=== PATIENT | female | born 1995 | race Caucasian/White ===

== ENCOUNTER 2019-01-04 19:50 | Emergency (ER) | payer BC ==
[2019-01-04 20:58] LABS: Appearance,Urine Clear (Clear); Bilirubin,Urine Negative (Negative); Blood,Urine Negative (Negative); Color,Urine Yellow; Glucose,Urine (UA) Negative (Negative); Ketones,Urine Negative (Negative); Leukocyte Esterase,Urine Negative (Negative); Nitrite,Urine Negative (Negative); PH, Urine 6.5 (5.0-8.0); Protein,Urine Negative (Negative); Specific Gravity,Urine 1.013 (1.001-1.035); Urobilinogen,Urine <2.0 mg/dL (<2.0)
[2019-01-04] MEDS ORDERED: SODIUM CHLORIDE 0.9% 1,000 ML IV STA (21:39)
[2019-01-04] MEDS ORDERED: KETOROLAC 30 MG/ML 1 ML VIAL IVP STA (21:39)
[2019-01-04] MEDS ORDERED: FAMOTIDINE 20 MG/2 ML VIAL IV STA (21:40)
[2019-01-04 22:00] LABS: Basophils # (A) 0.1 k/uL (0-0.2); Basophils % (A) 1 %; Eosinophils # (A) 0.1 k/uL (0-0.7); Eosinophils % (A) 2 %; HCT 42.4 % (34.0-46.0); Lymphocytes # (A) 1.6 k/uL (1.0-4.8); Lymphocytes % (A) 26 %; MCH 28.1 pg (25.0-35.0); MCHC 33.1 g/dL (31.0-37.0); MCV 84.8 fL (80.0-100.0); Mean Platelet Volume 6.8; Monocytes # (A) 0.4 k/uL (0-1.0); Monocytes % (A) 7 %; Neutrophils # (A) 3.8 k/uL (1.3-7.7); Neutrophils % (A) 62 %; Platelet Count 292 k/uL (150-450); RDW 13.1 % (11.5-15.5); WBC 6.1 k/uL (3.8-10.6)
[2019-01-04 22:02] VITALS: BP 119/80; RESP 18
[2019-01-04 22:11] LABS: ALT 22 U/L (9-52); AST 17 U/L (14-36); African American GFR (CKD) >90 (>60 ml/min/1.73 sqM); Albumin 4.6 g/dL (3.5-5.0); Alkaline Phosphatase 76 U/L (38-126); Amylase 56 U/L (30-110); Anion Gap 12 mmol/L; Blood Urea Nitrogen 9 mg/dL (7-17); Carbon Dioxide 23 mmol/L (22-30); Chloride 105 mmol/L (98-107); Glucose 104 mg/dL (74-99); Sodium 140 mmol/L (137-145); Total Bilirubin 0.3 mg/dL (0.2-1.3); Total Protein 7.7 g/dL (6.3-8.2)
--- NOTE | 2019-01-04 22:14 | XR ---
EXAM: XR Abdomen, 2 Views CLINICAL HISTORY: Abdominal pain. TECHNIQUE: Frontal view of the abdomen/pelvis with upright view of the abdomen. COMPARISON: None. FINDINGS: Intraperitoneal space: No free air. Gastrointestinal tract: Nonspecific bowel gas pattern No dilation. Bones/joints: Gentle levoscoliosis of the freckle lumbar spine. Vasculature: Left pelvic phleboliths. Other findings: Moderate quantity of stools noted. IMPRESSION: Moderate quantity of stool. Nonspecific bowel gas pattern. No free air.
--- NOTE | 2019-01-04 23:06 | ED ---
Abdominal Pain HPI - General Chief Complaint: Abdominal Pain Stated Complaint: Abdominal pain Time Seen by Provider: 01/04/19 20:48 Source: patient Mode of arrival: ambulatory Limitations: no limitations - History of Present Illness Initial Comments: 23-year-old female patient presents to the emergency department for evaluation of left upper abdominal pain. Patient states this started 2 weeks ago worsening since Sunday. Patient states that she has had some nausea and decreased appetite with this. Denies fever or chills. Denies any hematuria, dysuria, urinary frequency, urinary urgency. Patient states she has alternating constipation and diarrhea. States that her period was approximately 3 weeks ago and normal for her. Denies chance of . Denies any recent travel or sick contacts. Denies any hematochezia or melena. Patient denies any recent rash, shortness breath, chest pain, back pain, numbness, tingling, dizziness, weakness, headache, visual changes, or any other complaints. - Related Data Home Medications Medication Instructions Recorded Confirmed OXcarbazepine [Trileptal] 300 mg PO DAILY 01/04/19 01/04/19 buPROPion XL [Wellbutrin Xl] 300 mg PO DAILY 01/04/19 01/04/19 Previous Rx's Medication Instructions Recorded Famotidine [Pepcid] 20 mg PO HS #30 tablet 01/04/19 Polyethylene Glycol 3350 [Miralax] 17 gm PO DAILY #30 packet 01/04/19 Allergies Allergy/AdvReac Type Severity Reaction Status Date / Time No Known Allergies Allergy Verified 01/04/19 21:04 Review of Systems ROS Statement: Those systems with pertinent positive or pertinent negative responses have been documented in the HPI. ROS Other: All systems not noted in ROS Statement are negative. Past Medical History Past Medical History: No Reported History History of Any Multi-Drug Resistant Organisms: None Reported Past Surgical History: No Surgical Hx Reported Past Psychological History: Depression Smoking Status: Never smoker Past Alcohol Use History: Rare Past Drug Use History: None Reported General Exam Limitations: no limitations General appearance: alert, in no apparent distress, other (This is a well- developed, well-nourished adult female patient in no acute distress. Vital signs upon presentation are temperature 97.8F, pulse 112, respirations 20, blood pressure 126/84, pulse ox 100% on room air.) Eye exam: Present: normal appearance, PERRL, EOMI. Absent: scleral icterus, conjunctival injection, periorbital swelling ENT exam: Present: normal exam, normal oropharynx, mucous membranes moist Respiratory exam: Present: normal lung sounds bilaterally. Absent: respiratory distress, wheezes, rales, rhonchi, stridor Cardiovascular Exam: Present: regular rate, normal rhythm, normal heart sounds. Absent: systolic murmur, diastolic murmur, rubs, gallop, clicks GI/Abdominal exam: Present: soft, tenderness (Left upper quadrant tenderness), normal bowel sounds. Absent: distended, guarding, rebound, rigid Neurological exam: Present: alert, oriented X3, CN II-XII intact Psychiatric exam: Present: normal affect, normal mood Skin exam: Present: warm, dry, intact, normal color. Absent: rash Course Vital Signs 01/04/19 01/04/19 01/04/19 20:01 22:01 23:52 Temperature 97.8 F 97.9 F Pulse Rate 112 H 83 86 Respiratory 20 18 18 Rate Blood Pressure 126/84 119/80 119/80 O2 Sat by Pulse 100 98 98 Oximetry Medical Decision Making - Medical Decision Making 23-year-old female patient presents to the emergency department today for evaluation of left upper quadrant abdominal pain. Physical examination did reveal some left upper quadrant tenderness. Labs reviewed and were unremarkable. Urinalysis is negative. KUB x-ray was obtained and did show moderate quantity of stool. Did review the x-ray there is a large area of gas over the left upper quadrant. Discuss these findings and results with the patient. We did discuss constipation as a possible cause for her symptoms. We also discussed gallbladder dysfunction. She'll be discharged home with prescription for MiraLAX. She is instructed to follow-up with her primary care physician to discuss HIDA scan. Return parameters were discussed in detail. She verbalizes understanding and agrees this plan. - Lab Data Result diagrams: 01/04/19 21:45 01/04/19 21:45 Lab Results 01/04/19 01/04/19 01/04/19 Range/Units 20:15 20:15 21:45 WBC (3.8-10.6) k/uL RBC (3.80-5.40) m/uL Hgb (11.4-16.0) gm/dL Hct (34.0-46.0) % MCV (80.0-100.0) fL MCH (25.0-35.0) pg MCHC (31.0-37.0) g/dL RDW (11.5-15.5) % Plt Count (150-450) k/uL Neutrophils % % Lymphocytes % % Monocytes % % Eosinophils % % Basophils % % Neutrophils # (1.3-7.7) k/uL Lymphocytes # (1.0-4.8) k/uL Monocytes # (0-1.0) k/uL Eosinophils # (0-0.7) k/uL Basophils # (0-0.2) k/uL Sodium 140 (137-145) mmol/L Potassium 4.0 (3.5-5.1) mmol/L Chloride 105 (98-107) mmol/L Carbon Dioxide 23 (22-30) mmol/L Anion Gap 12 mmol/L BUN 9 (7-17) mg/dL Creatinine 0.75 (0.52-1.04) mg/dL Est GFR (CKD-EPI)AfAm >90 (>60 ml/min/1.73 sqM) Est GFR (CKD-EPI)NonAf >90 (>60 ml/min/1.73 sqM) Glucose 104 H (74-99) mg/dL Calcium 10.0 (8.4-10.2) mg/dL Total Bilirubin 0.3 (0.2-1.3) mg/dL AST 17 (14-36) U/L ALT 22 (9-52) U/L Alkaline Phosphatase 76 (38-126) U/L Total Protein 7.7 (6.3-8.2) g/dL Albumin 4.6 (3.5-5.0) g/dL Amylase 56 (30-110) U/L Lipase 66 (23-300) U/L Urine Color Yellow Urine Appearance Clear (Clear) Urine pH 6.5 (5.0-8.0) Ur Specific [place] 1.013 (1.001-1.035) Urine Protein Negative (Negative) Urine Glucose (UA) Negative (Negative) Urine Ketones Negative (Negative) Urine Blood Negative (Negative) Urine Nitrite Negative (Negative) Urine Bilirubin Negative (Negative) Urine Urobilinogen <2.0 (<2.0) mg/dL Ur Leukocyte Esterase Negative (Negative) Urine HCG, Qual Not Detected (Not Detectd) 01/04/19 Range/Units 21:45 WBC 6.1 (3.8-10.6) k/uL RBC 5.00 (3.80-5.40) m/uL Hgb 14.0 (11.4-16.0) gm/dL Hct 42.4 (34.0-46.0) % MCV 84.8 (80.0-100.0) fL MCH 28.1 (25.0-35.0) pg MCHC 33.1 (31.0-37.0) g/dL RDW 13.1 (11.5-15.5) % Plt Count 292 (150-450) k/uL Neutrophils % 62 % Lymphocytes % 26 % Monocytes % 7 % Eosinophils % 2 % Basophils % 1 % Neutrophils # 3.8 (1.3-7.7) k/uL Lymphocytes # 1.6 (1.0-4.8) k/uL Monocytes # 0.4 (0-1.0) k/uL Eosinophils # 0.1 (0-0.7) k/uL Basophils # 0.1 (0-0.2) k/uL Sodium (137-145) mmol/L Potassium (3.5-5.1) mmol/L Chloride (98-107) mmol/L Carbon Dioxide (22-30) mmol/L Anion Gap mmol/L BUN (7-17) mg/dL Creatinine (0.52-1.04) mg/dL Est GFR (CKD-EPI)AfAm (>60 ml/min/1.73 sqM) Est GFR (CKD-EPI)NonAf (>60 ml/min/1.73 sqM) Glucose (74-99) mg/dL Calcium (8.4-10.2) mg/dL Total Bilirubin (0.2-1.3) mg/dL AST (14-36) U/L ALT (9-52) U/L Alkaline Phosphatase (38-126) U/L Total Protein (6.3-8.2) g/dL Albumin (3.5-5.0) g/dL Amylase (30-110) U/L Lipase (23-300) U/L Urine Color Urine Appearance (Clear) Urine pH (5.0-8.0) Ur Specific [place] (1.001-1.035) Urine Protein (Negative) Urine Glucose (UA) (Negative) Urine Ketones (Negative) Urine Blood (Negative) Urine Nitrite (Negative) Urine Bilirubin (Negative) Urine Urobilinogen (<2.0) mg/dL Ur Leukocyte Esterase (Negative) Urine HCG, Qual (Not Detectd) - Radiology Data Radiology results: report reviewed, image reviewed Two-view x-ray of the abdomen is obtained. Report reviewed in its entirety. Impression by Dr. Smyth shows moderate quantity of stool. Nonspecific bowel gas pattern. No free air. Disposition Clinical Impression: Abdominal pain Disposition: HOME SELF-CARE Condition: Good Instructions (If sedation given, give patient instructions): Constipation (ED), Abdominal Pain (ED) Additional Instructions: Increase fluids, especially water. Take medications as directed. Follow-up with your primary care physician for recheck. Discuss HIDA scan. Return to the emergency department immediately for any new, worsening, or concerning symptoms. Medications were sent to the [facility] in [place], [place]. Prescriptions: Polyethylene Glycol 3350 [Miralax] 17 gm PO DAILY #30 packet Famotidine [Pepcid] 20 mg PO HS #30 tablet Is patient prescribed a controlled substance at d/c from ED?: No Referrals: Omkar eJnnings MD [Primary Care Provider] - 1-2 days Time of Disposition: 23:06
[2019-01-04 23:54] VITALS: PULSE 86; TEMP 97.9
== END 2019-01-04 23:30 | disposition home or self-care (01) ==
LOC: EC 19:50
DX: R10.12 Left upper quadrant pain (principal); R10.812 Left upper quadrant abdominal tenderness; R11.0 Nausea; R19.7 Diarrhea, unspecified; R63.0 Anorexia; Z32.02 Encounter for pregnancy test, result negative; F32.9 Major depressive disorder, single episode, unspecified; Z79.899 Other long term (current) drug therapy
CPT/HCPCS: 82075; 36415; 80053; 82150; 83690; 85025; 81003; 81025; 74018; 99284; 96374; 96375; 96361; J1885